=== PATIENT | female | born 1990 | race Caucasian/White ===

== ENCOUNTER 2020-07-17 09:13 | Outpatient (REF) | payer OTHER, SELFPAY ==
[2020-07-17 10:36] LABS: COVID-19 Test Negative (Negative)
[2020-07-30 10:05] LABS: SARS-COV-2 PCR UMBRL Not Detected
[2020-08-16 08:26] LABS: SARS-COV-2 PCR UMBRL NEGATIVE
== END 2020-07-17 09:14 | disposition home or self-care (01) ==
LOC: HO.EMPCOV 09:13
PROVIDERS: PCP Internal Medicine; Visit Provider Internal Medicine
DX: Z20.828 Contact with and (suspected) exposure to other viral communicable diseases (principal)
CPT/HCPCS: 36415; 87635; C9803; U0003

== ENCOUNTER → 2022-05-15 13:11 | Outpatient (RCR) | payer OTHER, SELFPAY ==
[2020-07-09 10:09] LABS: SARS-COV-2 PCR UMBRL Not Detected
== END | disposition home or self-care (01) ==
LOC: HO.EMPCOV 07-03
PROVIDERS: Visit Provider Internal Medicine
DX: Z20.828 Contact with and (suspected) exposure to other viral communicable diseases (principal)
CPT/HCPCS: U0003